=== PATIENT | male | born 1950 | race Two or more races ===

== ENCOUNTER 2018-11-16 08:47 | Outpatient (CLI) | payer OTHER ==
[~2018-11-16 08:47] MED LIST: ANTIVERT25 M1 PO
== END 2018-11-16 09:18 | disposition home or self-care (01) ==
LOC: RAD 08:47 → MAMO-SONO 09:15 → RAD 09:18
DX: E04.8 Other specified nontoxic goiter (principal); K21.9 Gastro-esophageal reflux disease without esophagitis